=== PATIENT | male | born 1945 | race Caucasian/White ===

== ENCOUNTER 2019-07-10 06:45 | Day surgery (SDC) | payer MEDICARE ==
[2019-07-05 14:28] VITALS: BMI 29.0
[~2019-07-10 06:45] MED LIST: LACTATED RINGERS 1,000 ML IV SCH; LIDOCAINE 1% 20 ML VIAL (10MG/ML) FOR IV START INTRADERMA PRN
[2019-07-10 07:19] VITALS: TEMP 97.7
[2019-07-10 07:26] LABS: Glucose,Whole Blood 102 mg/dL (75-99)
[2019-07-10] MEDS ORDERED: LIDOCAINE 1% INJ 10MG/ML (20 ML MDV) ONE (07:55)
[2019-07-10] MEDS ORDERED: PROPOFOL 10 MG/ML 20 ML VIAL IV ONE (07:55)
--- NOTE | 2019-07-10 07:59 | P.GSHP ---
History of Present Illness H&P Date: 07/10/19 Chief Complaint: Screening colonoscopy Cyst 74-year-old male who presents today for screening colonoscopy. Patient denies any significant GI complaints. Past Medical History Past Medical History: Chest Pain / Angina, Diabetes Mellitus, Eye Disorder, GERD/Reflux, Hyperlipidemia, Osteoarthritis (OA), Sleep Apnea/CPAP/BIPAP Additional Past Medical History / Comment(s): HX DETACHED RETINA RT EYE 2015. KIDNEY STONES. History of Any Multi-Drug Resistant Organisms: None Reported Additional Past Surgical History / Comment(s): UPPP SURG. COLONOSCOPY. Past Anesthesia/Blood Transfusion Reactions: No Reported Reaction Smoking Status: Never smoker - Past Family History Mother Family Medical History: No Reported History Medications and Allergies Home Medications Medication Instructions Recorded Confirmed Type Aspirin [Adult Low Dose Aspirin EC] 81 mg PO DAILY 02/12/16 07/10/19 History Atorvastatin [Lipitor] 20 mg PO HS 02/12/16 07/10/19 History Cholecalciferol [Vitamin D3] 4,000 unit PO DAILY 02/12/16 07/10/19 History [place]-3 Fatty Acids/Fish Oil [Fish 1 cap PO DAILY 02/12/16 07/10/19 History Oil 1,000 mg Softgel] Tamsulosin [Flomax] 0.4 mg PO HS 02/12/16 07/10/19 History metFORMIN HCL [Glucophage] 500 mg PO AC-BID 02/12/16 07/10/19 History Multivitamin/Iron/Folic Acid 1 tab PO DAILY 04/21/16 07/10/19 History [Centrum Complete Multivit Tab] Allergies Allergy/AdvReac Type Severity Reaction Status Date / Time No Known Allergies Allergy Verified 07/10/19 07:11 Surgical - Exam Vital Signs Temp Pulse Resp BP Pulse Ox 97.7 F 64 17 163/75 99 07/10/19 07:14 07/10/19 07:14 07/10/19 07:14 07/10/19 07:14 07/10/19 07:14 - General well developed, no distress - Eyes PERRL - ENT normal pinna - Neck no masses - Respiratory normal expansion - Cardiovascular Rhythm: regular - Abdomen Abdomen: soft, non tender Results - Labs Abnormal Lab Results - Last 24 Hours (Table) 07/10/19 Range/Units 07:18 POC Glucose (mg/dL) 102 H (75-99) mg/dL Assessment and Plan Assessment: We'll perform screening colonoscopy.
[2019-07-10 08:15] VITALS: RESP 16
[2019-07-10 08:40] VITALS: BP 105/63; PULSE 59
--- NOTE | 2019-07-10 08:56 | P.OP ---
Date of Procedure: 07/10/19 Preoperative Diagnosis: Screening colonoscopy Postoperative Diagnosis: Diverticulosis Procedure(s) Performed: Colonoscopy Anesthesia: MAC Surgeon: Toby Lerma Pathology: none sent Condition: stable Disposition: PACU Description of Procedure: Patient's placed on the endoscopy table in the lateral position. He received IV sedation. Digital rectal exam was performed which revealed no abnormalities. The flexible colonoscope was then placed patient anus and passed throughout the entire colon. The ileocecal valve was visualized. Cecum, ascending and transverse colon appeared normal. In the descending and sigmoid colon was mild diverticular changes. Scope was then brought back the rectum and this appeared normal. Scope was withdrawn for patient.
== END 2019-07-10 09:16 | disposition home or self-care (01) ==
LOC: ORWHC2ENDO 06:45
PROVIDERS: ATTEND Surgery
DX: Z12.11 Encounter for screening for malignant neoplasm of colon (principal); K57.30 Diverticulosis of large intestine without perforation or abscess without bleeding; I20.9 Angina pectoris, unspecified; E11.9 Type 2 diabetes mellitus without complications; K21.9 Gastro-esophageal reflux disease without esophagitis; E78.5 Hyperlipidemia, unspecified; M19.90 Unspecified osteoarthritis, unspecified site; G47.30 Sleep apnea, unspecified; Z86.69 Personal history of other diseases of the nervous system and sense organs; Z99.89 Dependence on other enabling machines and devices; Z87.442 Personal history of urinary calculi; Z98.890 Other specified postprocedural states; Z79.82 Long term (current) use of aspirin; Z79.899 Other long term (current) drug therapy; Z79.84 Long term (current) use of oral hypoglycemic drugs
CPT/HCPCS: G0121; J2001; J2704

== ENCOUNTER → 2019-08-14 | Outpatient (CLI) | payer MEDICARE ==
[2019-08-14 10:26] LABS: Basophils % (A) 0 %; Eosinophils # (A) 0.2 k/uL (0-0.7); Eosinophils % (A) 3 %; HCT 45.7 % (39.0-53.0); HGB 15.7 gm/dL (13.0-17.5); Lymphocytes # (A) 1.6 k/uL (1.0-4.8); Lymphocytes % (A) 23 %; MCH 31.1 pg (25.0-35.0); MCHC 34.3 g/dL (31.0-37.0); MCV 90.7 fL (80.0-100.0); Mean Platelet Volume 7.1; Monocytes # (A) 0.4 k/uL (0-1.0); Monocytes % (A) 5 %; Neutrophils # (A) 4.9 k/uL (1.3-7.7); Neutrophils % (A) 67 %; Platelet Count 178 k/uL (150-450); RBC 5.04 m/uL (4.30-5.90); RDW 13.3 % (11.5-15.5); WBC 7.3 k/uL (3.8-10.6)
--- NOTE | 2019-08-14 13:34 | XR ---
EXAMINATION TYPE: XR abdomen 1V DATE OF EXAM: 08/14/2019 Comparison: 07/11/2014 Clinical History: 74-year-old male low back pain Findings: Degenerative changes lower lumbar spine with hypertrophic facet arthropathy greater towards the right . Degenerative changes at the left greater than right hips. Scattered [id number] stool. No dila edvin small bowel loops. A couple calcifications in the right mid abdomen measuring 4 mm and 5 mm. Multiple pelvic phleboliths . Impression: Nonobstructive bowel gas pattern. [id number]-[id number] stool. There may be a couple 5 and 4 mm nonobstruc tive right renal calculi.
--- NOTE | 2019-08-14 13:41 | XR ---
EXAMINATION TYPE: XR lumbar spine 2 or 3V DATE OF EXAM: 08/14/2019 Comparison: None Clinical History: 74-year-old male LOWER BACK PAIN Findings: Hypertrophic facet arthropathy mid to lower lumbar spine particularly on the right. There appears to be a transitional lumbosacral segment. Grade 1 retrolisthesis at L1-L2 and L2-L3. Degenerative thinni ng of the intraspinous ligaments with abutment to near abutment of the spinous processes in the mid t o lower lumbar spine. Bridging anterior endplate spondylosis visualized lower thoracic spine and thor acolumbar junction. Vertebral body heights are preserved. Scattered oydi-du-suskelgk degenerative dis c disease. Impression: 1. Hypertrophic facet arthropathy. Grade 1 retrolistheses at L1-L2 and L2-L3. No vertebral compressio n collapse. 2. DISH within the visualized lower thoracic spine and thoracolumbar junction. 3. Mild to moderate degenerative disc disease throughout.
[2019-08-14 17:01] LABS: African American GFR (CKD) 84.4 (60.0-200.0); Albumin 4.6 g/dL (3.80-4.90); Albumin/Globulin Ratio 2.88 (1.60-3.17); Calcium 9.7 mg/dL (8.7-10.3); Globulin 1.6 g/dL (1.6-3.3); Non-African American GFR(CKD) 72.8 (60.0-200.0); Potassium 4.6 mmol/L (3.5-5.5); Total Protein 6.2 g/dL (6.2-8.2)
== END | disposition home or self-care (01) ==
LOC: LABWHC1 09:29
PROVIDERS: ATTEND Family Medicine
DX: M43.16 Spondylolisthesis, lumbar region (principal); M51.36 Other intervertebral disc degeneration, lumbar region; M46.96 Unspecified inflammatory spondylopathy, lumbar region; N20.0 Calculus of kidney; Z00.00 Encounter for general adult medical examination without abnormal findings; Z79.84 Long term (current) use of oral hypoglycemic drugs; E16.2 Hypoglycemia, unspecified; E66.1 Drug-induced obesity; E11.9 Type 2 diabetes mellitus without complications
CPT/HCPCS: 36415; 72100; 74018; 80053; 84439; 84443; 85025

== ENCOUNTER → 2019-09-18 | Outpatient (CLI) | payer MEDICARE ==
[2019-09-19 14:05] LABS: Avocado Class CLASS 0; Banana IgE Class CLASS 0; Hazelnut IgE <0.10 kU/L (<0.10); Hazelnut IgE Class CLASS 0; Kiwi IgE <0.10 kU/L (<0.10); Kiwi IgE Class CLASS 0; Latex IgE Class CLASS 0
== END | disposition home or self-care (01) ==
LOC: LABWHC1 10:11
PROVIDERS: ATTEND Otolaryngology
DX: J30.89 Other allergic rhinitis (principal)
CPT/HCPCS: 36415; 86003

== ENCOUNTER 2020-04-04 16:27 | Emergency (ER) | payer MEDICARE ==
[2020-04-04 16:38] VITALS: RESP 18
--- NOTE | 2020-04-04 16:45 | ED ---
Abdominal Pain HPI - General Chief Complaint: Abdominal Pain Stated Complaint: Abd Pain, Blood in Urine Time Seen by Provider: 04/04/20 16:41 Source: patient, RN notes reviewed, old records reviewed Mode of arrival: wheelchair Limitations: no limitations - History of Present Illness Initial Comments: This is a 74 show male to the ER for evaluation patient Dese for eval should've right-sided flank pain radiating to groin history of kidney stones. Mild nausea no vomiting no fevers no change in bowel habits does have discoloration of urine thinks his blood in his urine MD Complaint: abdominal pain, flank pain (right) -: hour(s) Location: RLQ, suprapubic Radiation: R flank Migration to: suprapubic Severity: severe Severity scale (1-10): 8 Quality: sharp Consistency: constant Improves With: nothing Worsens With: nothing Associated Symptoms: nausea - Related Data Home Medications Medication Instructions Recorded Confirmed Aspirin [Adult Low Dose Aspirin EC] 81 mg PO DAILY 02/12/16 07/10/19 Atorvastatin [Lipitor] 20 mg PO HS 02/12/16 07/10/19 Cholecalciferol [Vitamin D3] 4,000 unit PO DAILY 02/12/16 07/10/19 [place]-3 Fatty Acids/Fish Oil [Fish 1 cap PO DAILY 02/12/16 07/10/19 Oil 1,000 mg Softgel] Tamsulosin [Flomax] 0.4 mg PO HS 02/12/16 07/10/19 metFORMIN HCL [Glucophage] 500 mg PO AC-BID 02/12/16 07/10/19 Multivitamin/Iron/Folic Acid 1 tab PO DAILY 04/21/16 07/10/19 [Centrum Complete Multivit Tab] Allergies Allergy/AdvReac Type Severity Reaction Status Date / Time No Known Allergies Allergy Verified 04/04/20 16:37 Review of Systems ROS Statement: Those systems with pertinent positive or pertinent negative responses have been documented in the HPI. ROS Other: All systems not noted in ROS Statement are negative. Past Medical History Past Medical History: Chest Pain / Angina, Diabetes Mellitus, Eye Disorder, GERD/Reflux, Hyperlipidemia, Osteoarthritis (OA), Sleep Apnea/CPAP/BIPAP Additional Past Medical History / Comment(s): HX DETACHED RETINA RT EYE 2015. KIDNEY STONES. History of Any Multi-Drug Resistant Organisms: None Reported Additional Past Surgical History / Comment(s): COLONOSCOPY, sleep apnea sx Past Anesthesia/Blood Transfusion Reactions: No Reported Reaction Past Psychological History: No Psychological Hx Reported Smoking Status: Never smoker Past Alcohol Use History: None Reported Past Drug Use History: None Reported - Past Family History Mother Family Medical History: No Reported History General Exam Limitations: no limitations General appearance: alert, in no apparent distress Head exam: Present: atraumatic, normocephalic, normal inspection Eye exam: Present: normal appearance, PERRL, EOMI. Absent: scleral icterus, conjunctival injection, periorbital swelling ENT exam: Present: normal exam, mucous membranes moist Neck exam: Present: normal inspection. Absent: tenderness, meningismus, lymphadenopathy Respiratory exam: Present: normal lung sounds bilaterally. Absent: respiratory distress, wheezes, rales, rhonchi, stridor Cardiovascular Exam: Present: regular rate, normal rhythm, normal heart sounds. Absent: systolic murmur, diastolic murmur, rubs, gallop, clicks GI/Abdominal exam: Present: soft, normal bowel sounds. Absent: distended, tenderness, guarding, rebound, rigid Extremities exam: Present: normal inspection, full ROM, normal capillary refill. Absent: tenderness, pedal edema, joint swelling, calf tenderness Back exam: Present: normal inspection Neurological exam: Present: alert, oriented X3, CN II-XII intact Psychiatric exam: Present: normal affect, normal mood Skin exam: Present: warm, dry, intact, normal color. Absent: rash Course Vital Signs 04/04/20 04/04/20 16:35 18:18 Temperature 98.1 F Pulse Rate 67 68 Respiratory 18 18 Rate Blood Pressure 155/74 122/74 O2 Sat by Pulse 98 97 Oximetry - Reevaluation(s) Reevaluation #1: 04/04/20 17:42 Records reviewed Reevaluation #2: 04/04/20 17:42 Pain is improved Medical Decision Making - Medical Decision Making 74 male to the ED co abdominal pain, r flkan pain w kidney stone, will be given pain control and DC home - Lab Data Result diagrams: 04/04/20 17:00 04/04/20 17:00 Lab Results 04/04/20 04/04/20 04/04/20 Range/Units 17:00 17:00 17:00 WBC 10.2 (3.8-10.6) k/uL RBC 4.94 (4.30-5.90) m/uL Hgb 14.6 (13.0-17.5) gm/dL Hct 44.6 (39.0-53.0) % MCV 90.1 (80.0-100.0) fL MCH 29.4 (25.0-35.0) pg MCHC 32.7 (31.0-37.0) g/dL RDW 13.1 (11.5-15.5) % Plt Count 182 (150-450) k/uL Neutrophils % 79 % Lymphocytes % 13 % Monocytes % 4 % Eosinophils % 1 % Basophils % 1 % Neutrophils # 8.0 H (1.3-7.7) k/uL Lymphocytes # 1.4 (1.0-4.8) k/uL Monocytes # 0.4 (0-1.0) k/uL Eosinophils # 0.1 (0-0.7) k/uL Basophils # 0.1 (0-0.2) k/uL Sodium 136 L (137-145) mmol/L Potassium 4.3 (3.5-5.1) mmol/L Chloride 105 (98-107) mmol/L Carbon Dioxide 21 L (22-30) mmol/L Anion Gap 10 mmol/L BUN 21 H (9-20) mg/dL Creatinine 1.03 (0.66-1.25) mg/dL Est GFR (CKD-EPI)AfAm 82 (>60 ml/min/1.73 sqM) Est GFR (CKD-EPI)NonAf 71 (>60 ml/min/1.73 sqM) Glucose 144 H (74-99) mg/dL Plasma Lactic Acid Scotty (0.7-2.0) mmol/L Calcium 9.7 (8.4-10.2) mg/dL Total Bilirubin 0.8 (0.2-1.3) mg/dL AST 26 (17-59) U/L ALT 22 (4-49) U/L Alkaline Phosphatase 62 (38-126) U/L Total Protein 6.4 (6.3-8.2) g/dL Albumin 4.2 (3.5-5.0) g/dL Amylase 59 (30-110) U/L Lipase 91 (23-300) U/L Urine Color Yellow Urine Appearance Clear (Clear) Urine pH 6.0 (5.0-8.0) Ur Specific [place] 1.021 (1.001-1.035) Urine Protein Trace H (Negative) Urine Glucose (UA) Negative (Negative) Urine Ketones Negative (Negative) Urine Blood Large H (Negative) Urine Nitrite Negative (Negative) Urine Bilirubin Negative (Negative) Urine Urobilinogen <2.0 (<2.0) mg/dL Ur Leukocyte Esterase Negative (Negative) Urine RBC >182 H (0-5) /hpf Urine WBC 3 (0-5) /hpf Urine Mucus Rare H (None) /hpf Urine Yeast (Budding) Occasional H (None) /hpf 04/04/20 Range/Units 17:00 WBC (3.8-10.6) k/uL RBC (4.30-5.90) m/uL Hgb (13.0-17.5) gm/dL Hct (39.0-53.0) % MCV (80.0-100.0) fL MCH (25.0-35.0) pg MCHC (31.0-37.0) g/dL RDW (11.5-15.5) % Plt Count (150-450) k/uL Neutrophils % % Lymphocytes % % Monocytes % % Eosinophils % % Basophils % % Neutrophils # (1.3-7.7) k/uL Lymphocytes # (1.0-4.8) k/uL Monocytes # (0-1.0) k/uL Eosinophils # (0-0.7) k/uL Basophils # (0-0.2) k/uL Sodium (137-145) mmol/L Potassium (3.5-5.1) mmol/L Chloride (98-107) mmol/L Carbon Dioxide (22-30) mmol/L Anion Gap mmol/L BUN (9-20) mg/dL Creatinine (0.66-1.25) mg/dL Est GFR (CKD-EPI)AfAm (>60 ml/min/1.73 sqM) Est GFR (CKD-EPI)NonAf (>60 ml/min/1.73 sqM) Glucose (74-99) mg/dL Plasma Lactic Acid Scotty 1.8 (0.7-2.0) mmol/L Calcium (8.4-10.2) mg/dL Total Bilirubin (0.2-1.3) mg/dL AST (17-59) U/L ALT (4-49) U/L Alkaline Phosphatase (38-126) U/L Total Protein (6.3-8.2) g/dL Albumin (3.5-5.0) g/dL Amylase (30-110) U/L Lipase (23-300) U/L Urine Color Urine Appearance (Clear) Urine pH (5.0-8.0) Ur Specific [place] (1.001-1.035) Urine Protein (Negative) Urine Glucose (UA) (Negative) Urine Ketones (Negative) Urine Blood (Negative) Urine Nitrite (Negative) Urine Bilirubin (Negative) Urine Urobilinogen (<2.0) mg/dL Ur Leukocyte Esterase (Negative) Urine RBC (0-5) /hpf Urine WBC (0-5) /hpf Urine Mucus (None) /hpf Urine Yeast (Budding) (None) /hpf - Radiology Data Radiology results: report reviewed (CT abd pain positive for kidney stone, ), image reviewed Disposition Clinical Impression: Abdominal pain, Right kidney stone Disposition: HOME SELF-CARE Condition: Good Instructions (If sedation given, give patient instructions): Kidney Stones (ED) Is patient prescribed a controlled substance at d/c from ED?: No Referrals: Sergio Savage MD [Primary Care Provider] - 1-2 days
[2020-04-04 17:10] LABS: Basophils # (A) 0.1 k/uL (0-0.2); Basophils % (A) 1 %; Eosinophils # (A) 0.1 k/uL (0-0.7); Eosinophils % (A) 1 %; HCT 44.6 % (39.0-53.0); HGB 14.6 gm/dL (13.0-17.5); Lymphocytes # (A) 1.4 k/uL (1.0-4.8); Lymphocytes % (A) 13 %; MCH 29.4 pg (25.0-35.0); MCHC 32.7 g/dL (31.0-37.0); MCV 90.1 fL (80.0-100.0); Mean Platelet Volume 7.3; Monocytes # (A) 0.4 k/uL (0-1.0); Monocytes % (A) 4 %; Neutrophils % (A) 79 %; Platelet Count 182 k/uL (150-450); RBC 4.94 m/uL (4.30-5.90); RDW 13.1 % (11.5-15.5); WBC 10.2 k/uL (3.8-10.6)
[2020-04-04] MEDS: MORPHINE SULFATE 4 MG/ML SYRINGE IVP PRN ×2 (17:13→18:13)
[2020-04-04 17:25] LABS: Albumin 4.2 g/dL (3.5-5.0); Calcium 9.7 mg/dL (8.4-10.2); Potassium 4.3 mmol/L (3.5-5.1); Total Bilirubin 0.8 mg/dL (0.2-1.3); Total Protein 6.4 g/dL (6.3-8.2)
[2020-04-04 17:29] LABS: Appearance,Urine Clear (Clear); Bilirubin,Urine Negative (Negative); Blood,Urine Large (Negative); Budding Yeast,Urine Occasional /hpf; Color,Urine Yellow; Glucose,Urine (UA) Negative (Negative); Ketones,Urine Negative (Negative); Leukocyte Esterase,Urine Negative (Negative); Mucus,Urine Rare /hpf; Nitrite,Urine Negative (Negative); Protein,Urine Trace (Negative); RBC,Urine >182 /hpf (0-5); Specific Gravity,Urine 1.021 (1.001-1.035); Urobilinogen,Urine <2.0 mg/dL (<2.0); WBC,Urine 3 /hpf (0-5)
--- NOTE | 2020-04-04 18:07 | CT ---
EXAMINATION TYPE: CT abdomen pelvis wo con DATE OF EXAM: 04/04/2020 COMPARISON: 03/25/2016 HISTORY: abdomen pain, hematuria CT DLP: 702.4 mGycm Automated exposure control for dose reduction was used. Exam performed with no contrast. There is minimal subsegmental atelectasis at the lung bases. There is no pleural effusion. There is n o pericardial effusion. Heart appears slightly enlarged. Liver and gallbladder appear normal. The bile ducts are not dilated. Stomach is intact. There is smal l hiatal hernia. Spleen is intact. There is no evidence of pancreatic mass. There is no adrenal mass. Kidneys have normal size. There is 5 mm calculus posterior right kidney. Th ere is 3 cm cortical cyst posterior left kidney. There is 4 mm calculus lower pole left kidney. There is mild right-sided hydronephrosis. There is 6 mm calculus at the right ureteropelvic junction. Uret ers are not dilated. There is no retroperitoneal adenopathy. Prostate is enlarged and measures 5.5 cm . Bladder distends smoothly. There is small bilateral inguinal hernias that contain fat. There is no free fluid in the pelvis. There are multiple sigmoid diverticula. There is no sign of diverticulitis. Lumbar vertebra have norm al alignment. There is no compression fracture. There is mild lumbar disc space narrowing. The bony p shiva appears intact. Hip joints are intact. There is mild bilateral hip joint space narrowing with a cetabular spurring. There is no mesenteric edema. There is no ascites or free air. There is no bowel obstruction. Appendi x is not seen. There is no sign of thickened appendix. IMPRESSION: Bilateral renal calculi. Obstructing calculus at the right side ureteral pelvic junction is a change compared to old exam. Renal calculi appear new compared to old exam. Enlarged prostate. Sigmoid diverticulosis.
[2020-04-04] MEDS ORDERED: MORPHINE SULFATE 4 MG/ML SYRINGE IVP STA (18:15)
[2020-04-04] MEDS ORDERED: SODIUM CHLORIDE 0.9% 1,000 ML IV STA (19:01)
[2020-04-04] MEDS ORDERED: KETOROLAC 15 MG/ML 1 ML VIAL IVP STA (19:01)
[2020-04-04] MEDS ORDERED: TAMSULOSIN 0.4 MG CAP.ER.24H PO STA (19:03)
[2020-04-04] MEDS ORDERED: Acetaminophen-Codeine 300-30mg TAB PO STA (19:06)
[2020-04-04] MEDS ORDERED: ACET/COD 300 MG/30 MG STARTER PACK 6 TAB BTL PO STA (19:06)
[2020-04-04] MEDS ORDERED: IBUPROFEN 600 MG STARTER PACK 4 TAB BTL PO STA (19:06)
[2020-04-04 19:28] VITALS: BP 140/77; PULSE 77; TEMP 98
== END 2020-04-04 19:55 | disposition home or self-care (01) ==
LOC: EC 16:27
DX: N20.0 Calculus of kidney (principal); I20.9 Angina pectoris, unspecified; E11.9 Type 2 diabetes mellitus without complications; E78.5 Hyperlipidemia, unspecified; M19.90 Unspecified osteoarthritis, unspecified site; G47.30 Sleep apnea, unspecified; Z79.82 Long term (current) use of aspirin; Z79.84 Long term (current) use of oral hypoglycemic drugs; Z79.899 Other long term (current) drug therapy; Z99.89 Dependence on other enabling machines and devices
CPT/HCPCS: 36415; 80053; 82150; 83605; 83690; 85025; 81001; 74176; 99285; 96374; 96375; 96376; J2270; J1885

== ENCOUNTER → 2020-04-10 | Outpatient (CLI) | payer MEDICARE | END | disposition home or self-care (01) | LOC: LABPAT 12:28 | PROVIDERS: ATTEND Urology | DX: Z01.818 Encounter for other preprocedural examination (principal); N20.0 Calculus of kidney; N20.1 Calculus of ureter; R53.83 Other fatigue | CPT/HCPCS: 93005 ==

== ENCOUNTER 2020-04-11 14:14 | Day surgery (SDC) | payer MEDICARE ==
[2020-04-10 08:47] VITALS: BMI 28.1
--- NOTE | 2020-04-10 12:41 | P.GSHP ---
History of Present Illness H&P Date: 04/10/20 Chief Complaint: Right renal colic The patient is a 74-year-old white male with a history of recurrent calcium oxalate urolithiasis. He has previously undergone (extracorporal shockwave lithotripsy) ESWL and ureteroscopic stone basketing. He now presents with a one-week history of severe right flank pain, associated with gross hematuria. A computed tomography scan shows mild right hydronephrosis due to a 6 mm right UPJ calculus. The computed tomography scan also showed a 5 mm right renal calculus and a 4 mm left renal calculus. I had a lengthy discussion with the patient and his regarding alternative treatment options. These include observation with spontaneous passage, ESWL, and ureteroscopy with laser lithotripsy and stent placement. He has elected to undergo the latter. - Constitutional Constitutional: Denies chills, Denies fever - Gastrointestinal Gastrointestinal: Denies nausea, Denies vomiting - Genitourinary (Female) Genitourinary: Reports flank pain, Reports hematuria, Reports kidney stones Past Medical History Past Medical History: Cancer, Diabetes Mellitus, Eye Disorder, GERD/Reflux, Hyperlipidemia, Osteoarthritis (OA), Prostate Disorder, Sleep Apnea/CPAP/BIPAP Additional Past Medical History / Comment(s): skin cancer face, HX DETACHED RETINA RT EYE 2015. KIDNEY STONES. History of Any Multi-Drug Resistant Organisms: None Reported Additional Past Surgical History / Comment(s): COLONOSCOPY, sleep apnea sx, detached retina, shockwave lithotripsy Past Anesthesia/Blood Transfusion Reactions: No Reported Reaction Smoking Status: Never smoker - Past Family History Mother Family Medical History: No Reported History Medications and Allergies Home Medications Medication Instructions Recorded Confirmed Type Aspirin [Adult Low Dose Aspirin EC] 81 mg PO DAILY 02/12/16 04/10/20 History Atorvastatin [Lipitor] 20 mg PO HS 02/12/16 04/10/20 History Tamsulosin [Flomax] 0.4 mg PO HS 02/12/16 04/10/20 History metFORMIN HCL [Glucophage] 500 mg PO AC-BID 02/12/16 04/10/20 History Lansoprazole [Prevacid] 30 mg PO DAILY 04/04/20 04/10/20 History Ketorolac Tromethamine 10 mg PO Q6H PRN 04/10/20 04/10/20 History Allergies Allergy/AdvReac Type Severity Reaction Status Date / Time ciprofloxacin [From Cipro] Allergy Swelling Verified 04/10/20 08:42 sulfamethoxazole Allergy Rash/Hives Verified 04/10/20 08:42 [From Bactrim] trimethoprim [From Bactrim] Allergy Rash/Hives Verified 04/10/20 08:42 Results - Imaging CT scan - abdomen: report reviewed, image reviewed Assessment and Plan (1) Calculus of ureter Status: Acute Code(s): N20.1 - CALCULUS OF URETER SNOMED Code(s): 09442062 (2) Right kidney stone Status: Acute Code(s): N20.0 - CALCULUS OF KIDNEY SNOMED Code(s): 98560548 Plan: Cystoscopy, right retrograde pyelogram, right ureteroscopy with Holmium laser lithotripsy and possible stone basketing, right ureteral stent insertion. The procedure has been reviewed in detail with the patient and his . They are aware of potential risks, which include anesthesia, bleeding, infection, ureteral injury, and inability to successfully remove the calculus.
--- NOTE | 2020-04-11 14:32 | XR ---
EXAMINATION TYPE: XR KUB DATE OF EXAM: 04/11/2020 COMPARISON: 07/11/2014, CT scan 04/04/2020 HISTORY: Preop TECHNIQUE: One view abdominal series FINDINGS: The osseous structures are intact. The bowel gas pattern is nonspecific. Degenerative change of the spine and arthropathy of the hips. Vascular calcifications in the pelvis. Punctate calcification over lying the lower pole bilateral kidneys. Calcifications in the pelvis are stable from prior exam of and therefore likely vascular. IMPRESSION: 1. Nonspecific abdomen. Suspect a 2 mm lower pole bilateral renal calculus.
[2020-04-11] MEDS ORDERED: LACTATED RINGERS 1,000 ML IV ONE ×2 (15:22→22:10)
[2020-04-11] MEDS ORDERED: ONDANSETRON 4 MG/2 ML VIAL ONE (15:31)
[2020-04-11] MEDS ORDERED: DEXAMETHASONE SOD PHOSPHATE 10 MG/ML 1 ML VIAL IV ONE (15:36)
[2020-04-11] MEDS ORDERED: PROPOFOL 10 MG/ML 20 ML VIAL IV ONE (20:05)
[2020-04-11] MEDS ORDERED: MIDAZOLAM 2 MG/2 ML VIAL ONE (20:05)
[2020-04-11] MEDS ORDERED: SUCCINYLCHOLINE CHLORIDE 100 MG/5 ML SYR IV ONE (20:05)
[2020-04-11] MEDS ORDERED: LIDOCAINE 1% INJ 10MG/ML (20 ML MDV) ONE (20:05)
[2020-04-11] MEDS ORDERED: fentaNYL (PF) 50 MCG/ML 2 ML AMP ONE (20:05)
[2020-04-11] MEDS ORDERED: IOPAMIDOL-300 50ML BTL MISCELLANE ONE (20:40)
--- NOTE | 2020-04-11 21:49 | P.OP ---
Date of Procedure: 04/11/20 Preoperative Diagnosis: Right ureteral calculus, right renal calculus Postoperative Diagnosis: Same Procedure(s) Performed: Cystoscopy, right ureteroscopy with Holmium laser lithotripsy and stone basketing, right ureteral stent insertion Anesthesia: MIGUEA Surgeon: Buzz Langford Estimated Blood Loss (ml): 10 IV fluids (ml): 600 Pathology: other (Calculus fragments, sent for chemical analysis) Condition: stable Disposition: PACU Indications for Procedure: The patient is a 74-year-old white male with a history of recurrent calcium oxalate urolithiasis. He has previously undergone (extracorporal shockwave lithotripsy) ESWL and ureteroscopic stone basketing. He now presents with a one-week history of severe right flank pain, associated with gross hematuria. A computed tomography scan shows mild right hydronephrosis due to a 6 mm right UPJ calculus. The computed tomography scan also showed a 5 mm right renal calculus and a 4 mm left renal calculus. He now comes for ureteroscopic removal of the calculi. Operative Findings: Right proximal ureteral calculus, right lower pole renal calculus. Both very dense. Description of Procedure: The patient was taken to the operating room and placed in the dorsolithotomy position, with legs supported in Christoph stirrups. The external genitalia was prepped and draped sterilely. The 30 lens was used to introduce the 21-[place] Vega cystoscopic sheath through the urethra and into the bladder under direct vision. The prostatic urethra showed evidence of mild lateral lobe enlargement and a high median bar. The bladder was examined in its entirety. Both ureteral orifices were normal anatomic location and configuration. No tumors or foreign bodies were seen. a 0.038 inch Glidewire was passed through the cystoscope. The right ureteral orifice was cannulated, and the Glidewire was advanced up to the right renal pelvis. Some resistance was met within the right proximal ureter. An 11/13-[place] ureteral access catheter was passed over the wire, up to the mid ureter. The flexible ureteroscope was passed through the ureteral access catheter sheath, and advanced under direct vision. An area of narrowing was encountered within the ureter, to which the ureteroscope would not easily pass. Therefore, the Glidewire was passed through the ureteroscope, and the ureteroscope was advanced over the wire. Within the right renal pelvis was a calculus measuring approximately 5 mm in size. A slightly smaller calculus was seen within a lower pole calyx. The 272 holmium laser probe was passed through the ureteroscope, and lithotripsy was performed. An attempt was made to perform the procedure using a dusting method, but the calculi were very dense. Therefore, they were fragmented, and the larger fragments were removed using a 1.9-[place] nitinol basket. These fragments measured only 1-2 mm in size. They were saved and sent for chemical analysis. The Glidewire was passed through the ureteroscope, which was removed along with the ureteral access catheter sheath. The Glidewire was backloaded into the cystoscope, which was passed into the bladder. A 24 cm, 4.8-[place] double-J ureteral stent was placed over the wire. Proper stent positioning was verified fluoroscopically and endoscopically. The bladder was emptied and the cystoscope removed. The patient tolerated the procedure well was taken to the recovery room in stable condition.
[2020-04-12 00:06] VITALS: BP 146/57; PULSE 53; RESP 16; TEMP 97.7
--- NOTE | 2020-04-12 07:30 | FL ---
EXAMINATION TYPE: FL guidance operating room DATE OF EXAM: 04/11/2020 HISTORY: Fluoroscopy time 58 seconds of fluoroscopy provided. IMPRESSION: 1. Fluoroscopy time.
== END 2020-04-12 00:25 | disposition home or self-care (01) ==
LOC: OR 14:14 → 4SSUR 22:12 → OR 04-12 00:25
PROVIDERS: ATTEND Urology
DX: N13.2 Hydronephrosis with renal and ureteral calculous obstruction (principal); Z87.442 Personal history of urinary calculi; E11.9 Type 2 diabetes mellitus without complications; E78.5 Hyperlipidemia, unspecified; M19.90 Unspecified osteoarthritis, unspecified site; K21.9 Gastro-esophageal reflux disease without esophagitis; G47.33 Obstructive sleep apnea (adult) (pediatric); N42.9 Disorder of prostate, unspecified; Z88.1 Allergy status to other antibiotic agents; Z88.2 Allergy status to sulfonamides; Z79.82 Long term (current) use of aspirin; Z79.84 Long term (current) use of oral hypoglycemic drugs; Z79.899 Other long term (current) drug therapy; Z90.89 Acquired absence of other organs; Z98.890 Other specified postprocedural states; Z85.828 Personal history of other malignant neoplasm of skin
CPT/HCPCS: 82365; 74018; 52356; C2625; C1769; J2250; J1100; J0690; J2405; J2001; J3010; J0330; J2704

== ENCOUNTER → 2020-06-10 | Outpatient (CLI) | payer MEDICARE ==
--- NOTE | 2020-06-10 16:21 | US ---
EXAMINATION TYPE: US kidneys/renal and bladder DATE OF EXAM: 06/10/2020 COMPARISON: NONE CLINICAL HISTORY: 75-year-old male N13.2 HYDRONEPHROSIS. Patient states he had bilateral stones removed a few weeks prior. TECHNIQUE: Multiple sonographic images of the kidneys and bladder were obtained. FINDINGS: EXAM MEASUREMENTS: Right Kidney: 12.7 x 4.3 x 5.1 cm Left Kidney: 12.1 x 5.2 x 5.4 cm Right Kidney: cyst noted measuring 0.9 x 0.8 x 0.7cm, there is mild pelvocaliectasis. Left Kidney: lateral cyst measuring 2.7 x 2.7 x 2.0cm. No hydronephrosis. Bladder: wnl IMPRESSION: Mild right-sided pelvicaliectasis may be transient. Short interval follow-up can be considered.
--- NOTE | 2020-06-10 16:23 | XR ---
EXAMINATION TYPE: XR KUB DATE OF EXAM: 06/10/2020 Comparison: 04/11/2020 Clinical History: 75-year-old male N13.2 HYDRONEPHROSIS, N20.0 CALCULUS OF KIDNEY Findings: Moderate stool burden. Bowel content largely obscures the right renal shadow. Nonobstructive bowel ga s pattern. Vascular calcifications and phleboliths in the pelvis. A couple possible faint tiny 2 to 3 mm calculi projecting at the lower pole of the left kidney. Impression: Bowel content largely obscures the right renal shadow. Possible couple faint 2 to 3 mm calculi on the left.
== END | disposition home or self-care (01) ==
LOC: RADUSWWP 14:42
PROVIDERS: ATTEND Urology
DX: N28.89 Other specified disorders of kidney and ureter (principal)
CPT/HCPCS: 74018; 76770

== ENCOUNTER → 2020-08-21 | Outpatient (CLI) | payer MEDICARE ==
[2020-08-21 14:30] LABS: Basophils % (A) 0 %; Eosinophils # (A) 0.1 k/uL (0-0.7); Eosinophils % (A) 1 %; HCT 46.2 % (39.0-53.0); HGB 15.5 gm/dL (13.0-17.5); Lymphocytes # (A) 1.4 k/uL (1.0-4.8); Lymphocytes % (A) 19 %; MCH 30.4 pg (25.0-35.0); MCHC 33.5 g/dL (31.0-37.0); MCV 90.7 fL (80.0-100.0); Mean Platelet Volume 6.9; Monocytes # (A) 0.3 k/uL (0-1.0); Monocytes % (A) 5 %; Neutrophils # (A) 5.3 k/uL (1.3-7.7); Neutrophils % (A) 73 %; Platelet Count 189 k/uL (150-450); RDW 13.4 % (11.5-15.5); WBC 7.3 k/uL (3.8-10.6)
[2020-08-21 22:00] LABS: Hemoglobin A1C 5.8 % (4.0-6.0)
[2020-08-22 04:09] LABS: INR 0.98 (0.90-1.11); Partial Thromboplastin Time 27.7 sec (23.5-31.0); Prothrombin Time 10.6 sec (9.9-11.9)
[2020-08-22 06:47] LABS: African American GFR (CKD) 83.8 (60.0-200.0); Albumin 4.7 g/dL (3.80-4.90); Albumin/Globulin Ratio 2.47 (1.60-3.17); Anion Gap 7.8 mmol/L (4.00-12.00); Calcium 9.9 mg/dL (8.7-10.3); Carbon Dioxide 28.2 mmol/L (21.6-31.8); Globulin 1.9 g/dL (1.6-3.3); Non-African American GFR(CKD) 72.3 (60.0-200.0); Potassium 4.8 mmol/L (3.5-5.5); Total Bilirubin 0.7 mg/dL (0.2-1.2); Total Protein 6.6 g/dL (6.2-8.2)
== END | disposition home or self-care (01) ==
LOC: LABWHC1 13:47
PROVIDERS: ATTEND Physician Assistant
DX: Z00.00 Encounter for general adult medical examination without abnormal findings (principal); E11.9 Type 2 diabetes mellitus without complications
CPT/HCPCS: 36415; 80053; 83036; 84153; 84443; 85025; 85610; 85730; 86803; 86850; 86900; 86901; 87070

== ENCOUNTER → 2020-08-26 | Outpatient (CLI) | payer MEDICARE ==
[2020-08-26 21:16] LABS: Chol/HDL Ratio 2.95; LDL Cholesterol,Calculated 60.8 mg/dL (0.0-131.0); VLDL Calculation 13.2 mg/dL (5.00-40.00)
== END | disposition home or self-care (01) ==
LOC: LABWHC1 09:51
PROVIDERS: ATTEND Family Medicine
DX: Z00.00 Encounter for general adult medical examination without abnormal findings (principal)
CPT/HCPCS: 36415; 80061

== ENCOUNTER → 2021-05-26 | Outpatient (CLI) | payer MEDICARE | END | disposition home or self-care (01) | LOC: LABWHC1 11:34 | PROVIDERS: ATTEND Physician Assistant Medical | DX: M25.552 Pain in left hip (principal) | CPT/HCPCS: 36415; 85652; 86140 ==

== ENCOUNTER → 2022-12-21 | Outpatient (CLI) | payer MEDICARE ==
--- NOTE | 2022-12-21 09:58 | XR ---
EXAMINATION TYPE: XR chest 2V DATE OF EXAM: 12/21/2022 COMPARISON: Chest x-ray January 27, 2016 HISTORY: Chronic cough. TECHNIQUE: Frontal and lateral views of the chest are obtained. FINDINGS: There is no focal air space opacity, pleural effusion, or pneumothorax seen. The cardiac silhouette size is stable and within normal limits. Multilevel spurring in the spine is redemonstrate d. IMPRESSION: No acute cardiopulmonary process. No significant change from prior.
== END | disposition home or self-care (01) ==
LOC: RADXRMAIN 09:41
PROVIDERS: ATTEND Family Medicine
DX: R05.3 Chronic cough (principal)
CPT/HCPCS: 71046

== ENCOUNTER → 2023-03-04 | Outpatient (CLI) | payer MEDICARE ==
--- NOTE | 2023-03-04 18:42 | XR ---
EXAMINATION TYPE: XR sacroiliac joint comp 3 views BILAT, XR Hip Complete 2 views LT DATE OF EXAM: 03/04/2023 COMPARISON: NONE HISTORY: 77-year-old male M4 6.1, sacroiliitis FINDINGS: SI joints: Transitional lumbosacral segment. Suspect some degenerative change at the left-sided lumbosacral assi milation joint. SI joints appear symmetric and intact. No subarticular erosions are seen. Smooth deli neation of the arcuate lines of the sacrum. 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 Both acetabular cup and femoral stem components of the prosthes is appear well seated without periprosthetic fracture. Alignment grossly anatomic. There may be sligh t asymmetric wear of the polyethylene plastic liner at the prosthetic hip joint. No acute fracture, s ubluxation, or dislocation. IMPRESSION: 1. SI joints: Transitional lumbosacral segment. Suspect some degenerative change at the left-sided modesto mbosacral assimilation joint. Otherwise, no significant abnormality of the SI joints appreciated radi ographically. 2. Left hip: Intact left hip total arthroplasty. However, there may be very subtle early asymmetric w ear of the plastic liner at the prosthetic hip joint.
== END | disposition home or self-care (01) ==
LOC: RADXRMAIN 11:27
PROVIDERS: ATTEND Family Medicine
DX: M46.1 Sacroiliitis, not elsewhere classified (principal); Z96.642 Presence of left artificial hip joint
CPT/HCPCS: 72202; 73502

== ENCOUNTER → 2023-06-17 | Outpatient (CLI) | payer MEDICARE ==
[2023-06-17 16:43] LABS: ALT 30 U/L (10-49); AST 25 U/L (14-35); Albumin 4.5 d/dL (3.8-4.9); Albumin/Globulin Ratio 2.37 Ratio (1.60-3.17); Alkaline Phosphatase 74 U/L (41-126); BUN/Creat Ratio 17.18 Ratio (12.00-20.00); Blood Urea Nitrogen 18.9 mg/dL (9.0-27.0); Calcium 9.9 mg/dL (8.7-10.3); Carbon Dioxide 26.2 mmol/L (21.6-31.8); Chloride 103 mmol/L (96-109); Chol/HDL Ratio 2.62 Ratio; Globulin 1.9 d/dL (1.6-3.3); Glucose 108 mg/dL (70-110); LDL Cholesterol,Calculated 60.2 mg/dL (0.0-131.0); Potassium 5.3 mmol/L (3.5-5.5); Sodium 141 mmol/L (135-145); Total Bilirubin 1.3 mg/dL (0.3-1.2); Total Protein 6.4 d/dL (6.2-8.2)
== END | disposition home or self-care (01) ==
LOC: LABWHC1 09:13
PROVIDERS: ATTEND Internal Medicine Interventional Cardiology
DX: E78.2 Mixed hyperlipidemia (principal)
CPT/HCPCS: 36415; 80053; 80061

== ENCOUNTER → 2024-05-02 | Outpatient (CLI) | payer MEDICARE ==
[2024-05-02 15:30] LABS: ALT 29 U/L (10-49); AST 23 U/L (14-35); Albumin 4.3 g/dL (3.8-4.9); Albumin/Globulin Ratio 2.05 Ratio (1.60-3.17); Alkaline Phosphatase 83 U/L (41-126); Calcium 9.6 mg/dL (8.7-10.3); Carbon Dioxide 21.8 mmol/L (21.6-31.8); Chloride 106 mmol/L (96-109); Chol/HDL Ratio 2.93 Ratio; Globulin 2.1 g/dL (1.6-3.3); Glucose 110 mg/dL (70-110); Potassium 4.4 mmol/L (3.5-5.5); Sodium 141 mmol/L (135-145); Total Bilirubin 0.7 mg/dL (0.3-1.2); Total Protein 6.4 g/dL (6.2-8.2); VLDL Calculation 14.66 mg/dL (5.00-40.00)
== END | disposition home or self-care (01) ==
LOC: LABWHC1 08:58
PROVIDERS: ATTEND Internal Medicine Interventional Cardiology
DX: I10 Essential (primary) hypertension (principal); E78.2 Mixed hyperlipidemia
CPT/HCPCS: 36415; 80053; 80061

== ENCOUNTER 2024-06-19 05:35 | Day surgery (SDC) | payer MEDICARE ==
[2024-06-16 11:08] VITALS: BMI 29.7
[2024-06-19] MEDS ORDERED: ALPRAZolam 0.5 MG TAB PO PRN (05:39)
[2024-06-19] MEDS ORDERED: ALPRAZolam 0.25 MG TAB PO PRN (05:39)
[2024-06-19] MEDS ORDERED: NITROGLYCERIN SL TABS 0.4 MG TAB SUBLINGUAL PRN (05:39)
[2024-06-19] MEDS ORDERED: HEPARIN SODIUM,PORCINE 10,000 UNIT in SODIUM CHLORIDE 0.9% 1,000 ML IRRIGATION PRN (05:39)
[2024-06-19] MEDS ORDERED: HEPARIN SODIUM,PORCINE (1 ML) 2,500 UNIT in SODIUM CHLORIDE 0.9% 250 ML IRRIGATION PRN (05:39)
[2024-06-19 06:31] LABS: Glucose,Whole Blood 106 mg/dL (70-110)
[2024-06-19 06:46] LABS: Basophils % (A) 0 %; Eosinophils # (A) 0.1 k/uL (0-0.7); Eosinophils % (A) 2 %; HCT 44.3 % (39.0-53.0); HGB 14.5 gm/dL (13.0-17.5); Lymphocytes # (A) 1.9 k/uL (1.0-4.8); Lymphocytes % (A) 27 %; MCHC 32.8 g/dL (31.0-37.0); MCV 91.3 fL (80.0-100.0); Mean Platelet Volume 7.3; Monocytes # (A) 0.5 k/uL (0-1.0); Monocytes % (A) 7 %; Neutrophils # (A) 4.3 k/uL (1.3-7.7); Neutrophils % (A) 62 %; Platelet Count 212 k/uL (150-450); RBC 4.85 m/uL (4.30-5.90); RDW 13.1 % (11.5-15.5); WBC 6.9 k/uL (3.8-10.6)
[2024-06-19 06:47] VITALS: RESP 16; TEMP 97.7
[2024-06-19] MEDS: SODIUM CHLORIDE 0.9% 1,000 ML in EMPTY BAG 1 BAG IV SCH (06:48)
[2024-06-19] MEDS ORDERED: ASPIRIN 325 MG TAB PO ONE (07:00)
[2024-06-19] MEDS ORDERED: ATORVASTATIN 80 MG TAB PO ONE (07:00)
[2024-06-19 07:07] LABS: African American GFR (CKD) >90 (>60 ml/min/1.73 sqM); Anion Gap 9 mmol/L; Blood Urea Nitrogen 16 mg/dL (9-20); Calcium 9.2 mg/dL (8.4-10.2); Carbon Dioxide 24 mmol/L (22-30); Chloride 107 mmol/L (98-107); Glucose 111 mg/dL (74-99); Non-African American GFR(CKD) 81 (>60 ml/min/1.73 sqM); Potassium 4.1 mmol/L (3.5-5.1); Sodium 140 mmol/L (137-145)
[2024-06-19] MEDS: SODIUM CHLORIDE 0.9% 1,000 ML IV ONE (07:30)
[2024-06-19] MEDS: HEPARIN SODIUM,PORCINE (1 ML) 2,500 UNIT in SODIUM CHLORIDE 0.9% 250 ML IRRIGATION ONE (07:31)
[2024-06-19] MEDS: HEPARIN SODIUM,PORCINE 10,000 UNIT in SODIUM CHLORIDE 0.9% 1,000 ML IRRIGATION ONE (07:31)
[2024-06-19] MEDS: fentaNYL (PF) 50 MCG/ML 2 ML AMP IVP ONE (07:37)
[2024-06-19] MEDS: LIDOCAINE 1% INJ 10MG/ML (20 ML MDV) SQ ONE (07:44)
[2024-06-19] MEDS: VERAPAMIL SYRINGE (5 MG/10 ML) INTRAARTER ONE (07:46)
[2024-06-19] MEDS: HEPARIN SODIUM 1,000 UN/ML (10ML VL) IVP ONE (07:49)
[2024-06-19] MEDS: IOPAMIDOL-370 100ML BTL INJ ONE (07:56)
[2024-06-19] MEDS ORDERED: RX INFO: IV CONTRAST WAS GIVEN 1 EACH MISC MISCELLANE PRN (08:09)
--- NOTE | 2024-06-19 08:14 | P.CARDCATH ---
Date of Procedure: 06/19/24 Description of Procedure: Cardiac Catheterization: The patient is an 79-year-old male with a known history of diabetes and hyperlipidemia who has been complaining of progressive fatigue and had an abnormal MPI. Recommendations were made regarding cardiac catheterization, the risks and the complications were discussed with the patient who is in full understanding and agreement. Procedure Description: Patient was brought to labeling associate in fasting semi-sedated state after receiving Fentanyl and Benadryl achieiving moderate conscious sedated state. Using Xylocaine Anesthesia and modified Seldinger technique, a 6-Icelandic sheath was introduced in the right radial artery . Subsequently, selective coronary angiography was performed using a 5-Icelandic 3.5 bend Laurie catheter. Multiple views of the coronary artery including hemiaxial views were obtained. The right Laurie catheter was used to cross the aortic valve and LVEDP was calculated. Following that, catheter and sheath were removed. Hemostasis was obtained with deployment of vascular band . There was no immediate complication. Patient was returned to room in stable condition. Of note, the patient received a total of 4500 units of intravenous heparin as well as intra-arterial verapamil. Findings: Fluoroscopy: Severe calcifications of the coronary arteries was noted Left main: This is a large size vessel, bifurcating into LAD and left circumflex, left main has no obstructive disease LAD: This is a large size vessel, reaching to the apex, with a wraparound apex segment giving rise to 2 small diagonal branch. The LAD and its branches have no obstructive disease Left circumflex: This is a large nondominant vessel giving rise to 3 obtuse marginal branch the first 1 is a large vessel. The left circumflex and its branches have no obstructive disease RCA: This is a large dominant vessel bifurcating distally to PDA and PLV the right coronary artery proximally has mild intimal disease of 20%, the rest of the vessel has no high-grade stenosis Left Ventriculogram: Not performed Hemodynamics: There was no gradient across the aortic valve, LVEDP was 15-18 mmHg Conclusion: 1. Calcified coronary arteries 2. Mild disease in the proximal RCA 3. No obstructive disease in the left circumflex and LAD 4. Right dominance Recommendations: The patient will continue present medical therapy with aggressive coronary risks modifications. The findings and the recommendations were discussed with the patient and the family and they were in full understanding and agreement. Duration of sedation is 15 minutes.
[2024-06-19] MEDS ORDERED: SODIUM CHLORIDE 0.9% 1,000 ML IV SCH (08:15)
[2024-06-19] MEDS ORDERED: ASPIRIN 81 MG PO SCH (09:00)
[2024-06-19 12:35] VITALS: BP 146/69; PULSE 58
[2024-06-19] MEDS ORDERED: TAMSULOSIN 0.4 MG CAP.ER.24H PO SCH (21:00)
[2024-06-19] MEDS ORDERED: ATORVASTATIN 20 MG TAB PO SCH (21:00)
== END 2024-06-19 12:07 | disposition home or self-care (01) ==
LOC: CATHCVL 05:35
PROVIDERS: ATTEND Internal Medicine Interventional Cardiology
DX: R94.39 Abnormal result of other cardiovascular function study (principal); I25.10 Atherosclerotic heart disease of native coronary artery without angina pectoris; R53.83 Other fatigue; Z88.8 Allergy status to other drugs, medicaments and biological substances
CPT/HCPCS: 93458; 80048; 85025; 99152; C1769 ×2; C1894; J1644 ×3; J2003; J3010; Q9967

== ENCOUNTER → 2024-12-07 | Outpatient (CLI) | payer MEDICARE ==
[2024-12-07 15:38] LABS: ALT 30 U/L (10-49); AST 26 U/L (14-35); Chol/HDL Ratio 2.95 Ratio; VLDL Calculation 14.58 mg/dL (5.00-40.00)
== END | disposition home or self-care (01) ==
LOC: LABWHC1 08:41
PROVIDERS: ATTEND Internal Medicine Interventional Cardiology
DX: E78.2 Mixed hyperlipidemia (principal)
CPT/HCPCS: 36415; 80061; 84450; 84460